=== PATIENT | female | born 1965 | race Caucasian/White ===

== ENCOUNTER 2020-05-11 11:07 | Outpatient (CLI) | payer MEDICARE, MEDICAID, SELFPAY ==
--- NOTE | ~2020-05-11 | CT_ITS ---
EXAMINATION:CT lung screening DATE: 05/11/2020 11:40 INDICATION: Personal history of tobacco dependence. Current smoker with 60 pack year history. TECHNIQUE: Computed tomography (CT) of the chest was performed without intravenous contrast. Automate d exposure control and iterative reconstruction technique were employed. The dose-length product (DLP ) was 563.58 mGy-cm. COMPARISON: Chest CT 11/22/2018 FINDINGS: There is mild atelectasis bilaterally. There is a 3 mm nodule at right lung apex without ch pastor. There is mild bronchiectasis in left lower lobe and lingula. No pleural effusion. The heart siz e is normal. There are coronary artery calcifications. No pericardial effusion. The central pulmonary arteries are enlarged, consistent with pulmonary arterial hypertension. There are no pathologically enlarged lymph nodes. There is thoracic dextroscoliosis and severe spondylosis. IMPRESSION: 1. Lung-RADS category 2: Benign appearance or behavior. Continue annual screening with noncontrast lo w-dose chest CT in 12 months. Reviewed, dictated and finalized at location B. IMPRESSION: 1. Lung-RADS category 2: Benign appearance or behavior. Continue annual screeni ng with noncontrast low-dose chest CT in 12 months.
== END 2020-05-11 11:08 | disposition home or self-care (01) ==
PROVIDERS: PCP Emergency Medicine; Visit Provider Emergency Medicine
DX: Z12.2 Encounter for screening for malignant neoplasm of respiratory organs (principal); Z87.891 Personal history of nicotine dependence
CPT/HCPCS: G0297

== ENCOUNTER 2021-01-14 08:38 | Outpatient (CLI) | payer MEDICARE, MEDICAID, SELFPAY ==
--- NOTE | ~2021-01-14 | MM_ITS ---
EXAMINATION: MM screening allison BI w jaiden HISTORY: Screening mammogram, family history of breast cancer in her mother and sister. TECHNIQUE: Craniocaudal and mediolateral oblique 3-D tomosynthesis images were obtained and synthetic 2-D images were generated. CAD analysis was submitted and interpreted. COMPARISON: 10/21/2019, 09/29/2018, 07/20/2017 BREAST PARENCHYMAL COMPOSITION: The breasts are almost entirely fatty. FINDINGS: There is no evidence of suspicious mass, calcification, or architectural distortion to sugg est malignancy in either breast. There has been no suspicious interval change. IMPRESSION: 1. No mammographic evidence of malignancy. 2. Recommend routine screening mammography in one year. BI-RADS Category 1: Negative Reviewed, dictated and finalized at location A.
== END 2021-01-14 08:39 | disposition home or self-care (01) ==
PROVIDERS: PCP Emergency Medicine; Visit Provider Emergency Medicine
DX: Z12.31 Encounter for screening mammogram for malignant neoplasm of breast (principal)
CPT/HCPCS: 77063; 77067

== ENCOUNTER 2021-06-05 00:25 | Day surgery (SDC) | payer MEDICARE, MEDICAID, SELFPAY ==
[2021-05-28 15:38] VITALS: BMI 52.4
[2021-06-05 10:13] VITALS: BP 136/78; PULSE 92; RESP 24; TEMP 36.4; O2SAT 96; BMI 50.7
[2021-06-05] MEDS: LACTATED RINGERS 1,000 ML 150 ML IV CONT (10:26)
--- NOTE | 2021-06-05 10:34 | WPDANESEPPF ---
Anes - Initial Pre Proc Eval Procedure: Operation Date: 06/05/21 10:30 Proposed Procedures p Screening Colonoscopy - Iglesia Dominguez MD Date/Time: 06/05/21 10:34 Surgeon: Iglesia Dominguez MD Pre Op Diagnosis: hx of colon polyps z86.10 Patient Data Age: 55 Gender: F Height: 1.68 m Weight: 142.6 kg Last Vital Signs Temp 36.4 C 06/05/21 10:13 Pulse 92 06/05/21 10:13 Resp 24 H 06/05/21 10:13 BP 136/78 06/05/21 10:13 Pulse Ox 96 06/05/21 10:13 Allergies Allergy/AdvReac Type Severity Reaction Status Date / Time No Known Allergies Allergy Verified 05/28/21 15:39 Home Medications Medication Instructions Recorded Confirmed Type Calcium 600 + D(3) 1 tab-cap PO BID 05/28/21 05/28/21 History alprazolam 0.5 mg PO BID PRN 05/28/21 05/28/21 History aspirin 81 mg PO DAILY 05/28/21 05/28/21 History cetirizine 10 mg PO DAILY 05/28/21 05/28/21 History citalopram 10 mg PO HS 05/28/21 05/28/21 History denosumab [Prolia] 60 mg SUBCUT [id number] 05/28/21 05/28/21 History etanercept [Enbrel SureClick] 50 mg SUBCUT WEEKLY 05/28/21 05/28/21 History fluticasone propionate 2 spray INTRANASAL DAILY 05/28/21 05/28/21 History hydrocodone-acetaminophen 1 tablet PO Q6H PRN 05/28/21 05/28/21 History hydroxychloroquine 200 mg PO BID 05/28/21 05/28/21 History [id number]-gdcpwhgo-mkjryp 1 tablet PO DAILY 05/28/21 05/28/21 History [Centrum Silver] omega-3 fatty acids-vitamin E 1 cap PO DAILY 05/28/21 05/28/21 History [Fish Oil] oxybutynin chloride 5 mg PO BID 05/28/21 05/28/21 History valsartan 320 mg PO DAILY 05/28/21 05/28/21 History Patient hx anesthesia problems: none Family hx anesthesia problems: none PMFSH Past Medical History Medical History (Updated 06/05/21 @ 10:34 by Teo Ortiz MD) HTN (hypertension) Morbid obesity CHRIS (obstructive sleep apnea) Family History Family History Father Family history of chronic obstructive pulmonary disease Family history of malignant neoplasm of bone Family history of emphysema Sibling Family history of malignant neoplasm of breast in first degree relative Acute myocardial infarction Other Diabetes mellitus Family history of arthritis Family history of cardiovascular disease Family history of heart disease in male family member before age 55 Family history of malignant neoplasm Hypertension Social History Social History Smoking packs per day: 1.5 Smoking cigarettes per day: 30.0 Years smoked: 40 Smoking pack-years: 60.00 Smoking status: Current every day smoker Tobacco type: cigarettes Smoking end date: 09/28/14 Alcohol intake: former Substance use: former Substance use type: former substance user, crack/cocaine, amphetamines and IV drugs Other substance usage details: EDIBLES NOW OCC. MARIJUANA Living arrangements: with family Spiritual care concerns: No Anes - Eval Final PreProcedure Day of Procedure 06/05/21 10:34 Patient weight: morbidly obese Heart: regular rate and rhythm Lungs: clear to auscultation Airway: Mallampati scale class II Neurological: alert and oriented Last oral intake: >/= 8 hours ASA classification: IV Emergent: no Anesthetic plan: proceed Anesthesia type and monitoring: general GIVS and standard monitoring Informed Consent: The patient's anesthetic plan and its attendant risks and benefits were discussed with the patient/family/POA. Questions were solicited and answers provided to the satisfaction of the patient/family/POA.
--- NOTE | 2021-06-05 10:47 | PM.HPGS ---
History of Present Illness History of Present Illness Consent: Risks, benefits, and alternatives have been discussed and questions answered. Patient agrees to proceed with procedure. Chief complaint: hx of colon polyps z86.10 Narrative: Denisse Xiao is a 55 year old female with colon polyp 5 years ago Review of Systems Constitutional: Constitutional: Denies headache(s) and Denies weakness Eyes: Eyes: Denies blurry vision ENT: Reports Normal hearing present, Denies headache(s) and Denies neck pain Cardiovascular: Cardiovascular: Denies chest pain and Denies dyspnea Respiratory: Respiratory: Denies dyspnea Gastrointestinal: Gastrointestinal: Reports no additional gastrointestinal complaints Genitourinary: Genitourinary: Denies dysuria Musculoskeletal: Musculoskeletal: Denies neck pain Integumentary/Breasts: Skin/Breast: Denies dry skin Neurologic: Reports Normal hearing present, Denies headache(s) and Denies weakness Psychiatric: Psychiatric: Denies anxiety Endocrine: Endocrine: Denies change in body appearance Hematologic/Lymphatic: Hematologic/Lymphatic: Denies easy bleeding Allergic/Immunologic: Allergic/Immunologic: Denies urticaria PMF Past Medical History Medical History (Updated 06/05/21 @ 10:48 by Iglesia Dominguez MD) Colon cancer screening HTN (hypertension) Morbid obesity CHRIS (obstructive sleep apnea) Family History Family History Father Family history of chronic obstructive pulmonary disease Family history of malignant neoplasm of bone Family history of emphysema Sibling Family history of malignant neoplasm of breast in first degree relative Acute myocardial infarction Other Diabetes mellitus Family history of arthritis Family history of cardiovascular disease Family history of heart disease in male family member before age 55 Family history of malignant neoplasm Hypertension Social History Social History Smoking packs per day: 1.5 Smoking cigarettes per day: 30.0 Years smoked: 40 Smoking pack-years: 60.00 Smoking status: Current every day smoker Tobacco type: cigarettes Smoking end date: 09/28/14 Alcohol intake: former Substance use: former Substance use type: former substance user, crack/cocaine, amphetamines and IV drugs Other substance usage details: EDIBLES NOW OCC. MARIJUANA Living arrangements: with family Spiritual care concerns: No Meds Home Medications and Allergies Home Medications Medication Instructions Recorded Confirmed Type Calcium 600 + D(3) 1 tab-cap PO BID 05/28/21 05/28/21 History alprazolam 0.5 mg PO BID PRN 05/28/21 05/28/21 History aspirin 81 mg PO DAILY 05/28/21 05/28/21 History cetirizine 10 mg PO DAILY 05/28/21 05/28/21 History citalopram 10 mg PO HS 05/28/21 05/28/21 History denosumab [Prolia] 60 mg SUBCUT [id number] 05/28/21 05/28/21 History etanercept [Enbrel SureClick] 50 mg SUBCUT WEEKLY 05/28/21 05/28/21 History fluticasone propionate 2 spray INTRANASAL DAILY 05/28/21 05/28/21 History hydrocodone-acetaminophen 1 tablet PO Q6H PRN 05/28/21 05/28/21 History hydroxychloroquine 200 mg PO BID 05/28/21 05/28/21 History [id number]-pbzlutst-xdtqdq 1 tablet PO DAILY 05/28/21 05/28/21 History [Centrum Silver] omega-3 fatty acids-vitamin E 1 cap PO DAILY 05/28/21 05/28/21 History [Fish Oil] oxybutynin chloride 5 mg PO BID 05/28/21 05/28/21 History valsartan 320 mg PO DAILY 05/28/21 05/28/21 History Allergies Allergy/AdvReac Type Severity Reaction Status Date / Time No Known Allergies Allergy Verified 05/28/21 15:39 Vital Signs Vital Signs - 24 hr 06/05/21 10:13 Temperature 97.6 F Pulse Rate 92 Respiratory Rate 24 H Blood Pressure 136/78 Pulse Oximetry 96 Exam Const: General: comfortable and no acute distress Nutritional Appearance: obese HENMT: General nose exa
[2021-06-05 11:08] VITALS: BP 120/74; PULSE 68; RESP 24; O2SAT 100
[2021-06-05 11:18] VITALS: BP 127/75; PULSE 65; RESP 19; O2SAT 100
[2021-06-05 11:28] VITALS: BP 130/76; PULSE 75; RESP 19; O2SAT 100
== END 2021-06-05 11:40 | disposition home or self-care (01) ==
PROVIDERS: PCP Emergency Medicine; Visit Provider Internal Medicine Gastroenterology
PROC: 0DJD8ZZ Inspection of Lower Intestinal Tract, Via Natural or Artificial Opening Endoscopic (ICD-10-PCS; CPT 45378; principal; 2021-06-05 10:30)
DX: Z12.11 Encounter for screening for malignant neoplasm of colon (principal); D12.4 Benign neoplasm of descending colon; K64.8 Other hemorrhoids; I10 Essential (primary) hypertension; G47.33 Obstructive sleep apnea (adult) (pediatric); E66.01 Morbid (severe) obesity due to excess calories; Z68.43 Body mass index [BMI] 50.0-59.9, adult; Z79.82 Long term (current) use of aspirin; F17.210 Nicotine dependence, cigarettes, uncomplicated; F12.90 Cannabis use, unspecified, uncomplicated
CPT/HCPCS: 45385; 88305; J2704; J7120

== ENCOUNTER 2021-07-05 02:01 | Day surgery (SDC) | payer MEDICARE, MEDICAID, SELFPAY ==
[2021-06-20 09:01] VITALS: BMI 52.5
[2021-07-05 08:48] VITALS: BP 181/76; PULSE 73; RESP 20; TEMP 36.8; O2SAT 98
[2021-07-05] MEDS: LACTATED RINGERS 1,000 ML 150 ML IV CONT (09:00)
--- NOTE | 2021-07-05 09:10 | WPDANESEPPF ---
Anes - Initial Pre Proc Eval Procedure: Operation Date: 07/05/21 09:30 Proposed Procedures p Esophagogastroduodenoscopy - Iglesia Dominguez MD Date/Time: 07/05/21 09:10 Surgeon: Iglesia Dominguez MD Pre Op Diagnosis: henson's esophagus Patient Data Age: 55 Gender: F Height: 1.68 m Weight: 143.7 kg Last Vital Signs Temp 98.3 F 07/05/21 08:48 Pulse 73 07/05/21 08:48 Resp 20 07/05/21 08:48 BP 181/76 H 07/05/21 08:48 Pulse Ox 98 07/05/21 08:48 Allergies Allergy/AdvReac Type Severity Reaction Status Date / Time No Known Allergies Allergy Verified 07/05/21 08:46 Home Medications Medication Instructions Recorded Confirmed Type Calcium 600 + D(3) 1 tab-cap PO BID 05/28/21 06/20/21 History alprazolam 0.5 mg PO BID PRN 05/28/21 06/20/21 History aspirin 81 mg PO DAILY 05/28/21 06/20/21 History cetirizine 10 mg PO DAILY 05/28/21 06/20/21 History citalopram 10 mg PO HS 05/28/21 06/20/21 History denosumab [Prolia] 60 mg SUBCUT [id number] 05/28/21 06/20/21 History etanercept [Enbrel SureClick] 50 mg SUBCUT WEEKLY 05/28/21 06/20/21 History fluticasone propionate 2 spray INTRANASAL DAILY 05/28/21 06/20/21 History hydrocodone-acetaminophen 1 tablet PO Q6H PRN 05/28/21 06/20/21 History hydroxychloroquine 200 mg PO BID 05/28/21 06/20/21 History iziaqsrgtddi-emjtiwcd-qljfep 1 tablet PO DAILY 05/28/21 06/20/21 History [Centrum Silver] omega-3 fatty acids-vitamin E 1 cap PO DAILY 05/28/21 06/20/21 History [Fish Oil] oxybutynin chloride 5 mg PO BID 05/28/21 06/20/21 History valsartan 320 mg PO DAILY 05/28/21 06/20/21 History Patient hx anesthesia problems: none Family hx anesthesia problems: none Results Review: All pre-operative results and documents have been reviewed as part of the pre-operative evaluation. [facility] Past Medical History Medical History (Updated 06/05/21 @ 10:48 by Iglesia Dominguez MD) Colon cancer screening HTN (hypertension) Morbid obesity CHRIS (obstructive sleep apnea) Family History Family History Father Family history of chronic obstructive pulmonary disease Family history of malignant neoplasm of bone Family history of emphysema Sibling Family history of malignant neoplasm of breast in first degree relative Acute myocardial infarction Other Diabetes mellitus Family history of arthritis Family history of cardiovascular disease Family history of heart disease in male family member before age 55 Family history of malignant neoplasm Hypertension Social History Social History Smoking packs per day: 1.5 Smoking cigarettes per day: 30.0 Years smoked: 40 Smoking pack-years: 60.00 Smoking status: Current every day smoker Tobacco type: cigarettes Smoking end date: 09/28/14 Alcohol intake: former Substance use: former Substance use type: former substance user, crack/cocaine, amphetamines and IV drugs Other substance usage details: EDIBLES NOW OCC. MARIJUANA Living arrangements: with family Spiritual care concerns: No Anes - Eval Final PreProcedure Day of Procedure 07/05/21 09:10 Patient weight: super morbidly obese Heart: regular rate and rhythm Lungs: clear to auscultation Airway: Mallampati scale class III Neurological: alert and oriented Last oral intake: >/= 8 hours ASA classification: IV Emergent: no Anesthetic plan: proceed Anesthesia type and monitoring: general GIVS and standard monitoring Results Review: All pre-operative results and documents have been reviewed as part of the pre-operative evaluation. Informed Consent: The patient's anesthetic plan and its attendant risks and benefits were discussed with the patient/family/POA. Questions were solicited and answers provided to the satisfaction of the patient/family/POA.
--- NOTE | 2021-07-05 09:16 | PM.HPGS ---
History of Present Illness History of Present Illness Consent: Risks, benefits, and alternatives have been discussed and questions answered. Patient agrees to proceed with procedure. Chief complaint: henson's esophagus Narrative: Denisse Xiao is a 55 year old female with Henson's 2 years ago, denies gerd symptoms Review of Systems Constitutional: Constitutional: Denies headache(s) and Denies weakness Eyes: Eyes: Denies blurry vision ENT: Reports Normal hearing present, Denies headache(s) and Denies neck pain Cardiovascular: Cardiovascular: Denies chest pain and Denies dyspnea Respiratory: Respiratory: Denies dyspnea Gastrointestinal: Gastrointestinal: Reports no additional gastrointestinal complaints Genitourinary: Genitourinary: Denies dysuria Musculoskeletal: Musculoskeletal: Denies neck pain Integumentary/Breasts: Skin/Breast: Denies dry skin Neurologic: Reports Normal hearing present, Denies headache(s) and Denies weakness Psychiatric: Psychiatric: Denies anxiety Endocrine: Endocrine: Denies change in body appearance Hematologic/Lymphatic: Hematologic/Lymphatic: Denies easy bleeding Allergic/Immunologic: Allergic/Immunologic: Denies urticaria PMFSH Past Medical History Medical History (Updated 07/05/21 @ 09:17 by Iglesia Dominguez MD) Henson esophagus Colon cancer screening HTN (hypertension) Morbid obesity CHRIS (obstructive sleep apnea) Family History Family History Father Family history of chronic obstructive pulmonary disease Family history of malignant neoplasm of bone Family history of emphysema Sibling Family history of malignant neoplasm of breast in first degree relative Acute myocardial infarction Other Diabetes mellitus Family history of arthritis Family history of cardiovascular disease Family history of heart disease in male family member before age 55 Family history of malignant neoplasm Hypertension Social History Social History Smoking packs per day: 1.5 Smoking cigarettes per day: 30.0 Years smoked: 40 Smoking pack-years: 60.00 Smoking status: Current every day smoker Tobacco type: cigarettes Smoking end date: 09/28/14 Alcohol intake: former Substance use: former Substance use type: former substance user, crack/cocaine, amphetamines and IV drugs Other substance usage details: EDIBLES NOW OCC. MARIJUANA Living arrangements: with family Spiritual care concerns: No Meds Home Medications and Allergies Home Medications Medication Instructions Recorded Confirmed Type Calcium 600 + D(3) 1 tab-cap PO BID 05/28/21 06/20/21 History alprazolam 0.5 mg PO BID PRN 05/28/21 06/20/21 History aspirin 81 mg PO DAILY 05/28/21 06/20/21 History cetirizine 10 mg PO DAILY 05/28/21 06/20/21 History citalopram 10 mg PO HS 05/28/21 06/20/21 History denosumab [Prolia] 60 mg SUBCUT [id number] 05/28/21 06/20/21 History etanercept [Enbrel SureClick] 50 mg SUBCUT WEEKLY 05/28/21 06/20/21 History fluticasone propionate 2 spray INTRANASAL DAILY 05/28/21 06/20/21 History hydrocodone-acetaminophen 1 tablet PO Q6H PRN 05/28/21 06/20/21 History hydroxychloroquine 200 mg PO BID 05/28/21 06/20/21 History vbmwaqkcdzfe-mpztyhra-[id number] 1 tablet PO DAILY 05/28/21 06/20/21 History [Centrum Silver] omega-3 fatty acids-vitamin E 1 cap PO DAILY 05/28/21 06/20/21 History [Fish Oil] oxybutynin chloride 5 mg PO BID 05/28/21 06/20/21 History valsartan 320 mg PO DAILY 05/28/21 06/20/21 History Allergies Allergy/AdvReac Type Severity Reaction Status Date / Time No Known Allergies Allergy Verified 07/05/21 08:46 Vital Signs Vital Signs - 24 hr 07/05/21 08:48 Temperature 98.3 F Pulse Rate 73 Respiratory Rate 20 Blood Pressure 181/76 H Pulse Oximetry 98 Exam Const: General: comfortable and no acute distress HENMT: General nose e
[2021-07-05] MEDS: BENZOCAINE (*SP) 60 ML SPRAY CAN (HURRICAINE) 1 SPRAY MUCOUS MEM (09:24)
[2021-07-05 09:35] VITALS: BP 154/102; PULSE 74; RESP 14; O2SAT 99
[2021-07-05 09:45] VITALS: BP 152/81; PULSE 73; RESP 17; O2SAT 99
[2021-07-05 09:55] VITALS: BP 139/75; PULSE 76; RESP 18; O2SAT 97
== END 2021-07-05 09:58 | disposition home or self-care (01) ==
PROVIDERS: PCP Emergency Medicine; Visit Provider Internal Medicine Gastroenterology
PROC: 0DJ08ZZ Inspection of Upper Intestinal Tract, Via Natural or Artificial Opening Endoscopic (ICD-10-PCS; CPT 43235; principal; 2021-07-05 09:30)
DX: K22.70 Barrett's esophagus without dysplasia (principal); K29.70 Gastritis, unspecified, without bleeding; K29.50 Unspecified chronic gastritis without bleeding; I10 Essential (primary) hypertension; G47.33 Obstructive sleep apnea (adult) (pediatric); E66.01 Morbid (severe) obesity due to excess calories; Z68.43 Body mass index [BMI] 50.0-59.9, adult; F17.210 Nicotine dependence, cigarettes, uncomplicated; Z79.82 Long term (current) use of aspirin
CPT/HCPCS: 43239; 88305; 88313; J2704; J7120

== ENCOUNTER 2022-06-04 08:42 | Emergency (ER) | payer MEDICARE, MEDICAID, SELFPAY ==
--- NOTE | 2022-06-04 08:44 | ED.EYEPROB ---
HPI - Eye Problem General Chief complaint: Eye Problems Stated complaint: EYE REDNESS Time Seen by Provider: 06/04/22 08:44 Source: patient and RN notes reviewed History of Present Illness HPI Narrative: Patient is a 56-year-old female who presents the urgent care with complaints of redness and drainage to the left eye. Patient states its been ongoing for approximately 1 month and she has been using xavy-bvv-qyrzwkw eyedrops. Patient states that her eye doctor told her it could be related to COVID and would not see her in the office . Patient states that she does go for a follow-up with her eye doctor on Thursday but has been told that she has pinkeye. Patient denies of any fever or COVID-related symptoms. Denies any trauma or injury to the eye. No other acute complaints. No acute distress noted. Patient aware of the plan of care. Some parts of this dictation were generated by voice recognition software and may contain typographical and/or grammatical inaccuracies. Related Data Home Medications Medication Instructions Recorded Confirmed Calcium 600 + D(3) 1 tab-cap PO BID 05/28/21 06/20/21 alprazolam 0.5 mg tablet 0.5 mg PO BID PRN Anxiety 05/28/21 06/20/21 aspirin 81 mg tablet,delayed 81 mg PO DAILY 05/28/21 06/20/21 release cetirizine 10 mg tablet 10 mg PO DAILY 05/28/21 06/20/21 citalopram 10 mg tablet 10 mg PO HS 05/28/21 06/20/21 denosumab 60 mg/mL subcutaneous 60 mg subcut [id number] 05/28/21 06/20/21 syringe (Prolia) etanercept 50 mg/mL (1 mL) 50 mg subcut WEEKLY 05/28/21 06/20/21 subcutaneous pen injector (Enbrel SureClick) fluticasone propionate 50 2 spray intranasal DAILY 05/28/21 06/20/21 mcg/actuation nasal spray,suspension hydrocodone 10 mg-acetaminophen 1 tablet PO Q6H PRN Pain 05/28/21 06/20/21 325 mg tablet hydroxychloroquine 200 mg tablet 200 mg PO BID 05/28/21 06/20/21 vrooyogrsodf-vjnxiicr-kceyxc tablet 1 tablet PO DAILY 05/28/21 06/20/21 omega-3 fatty acids-vitamin E 1 cap PO DAILY 05/28/21 06/20/21 1,000 mg capsule oxybutynin chloride 5 mg tablet 5 mg PO BID 05/28/21 06/20/21 valsartan 320 mg tablet 320 mg PO DAILY 05/28/21 06/20/21 Allergies Allergy/AdvReac Type Severity Reaction Status Date / Time ibuprofen Allergy Mild NAUSEA AND Verified 12/05/21 16:31 VOMITING Review of Systems Review of Systems: CONSTITUTIONAL: Denies fever, chills, or sweats. EYES: Reports of redness, drainage and itchiness to the left eye ENT: Denies rhinorrhea, congestion, sore throat, or otalgia. CARDIOVASCULAR: Denies chest pain, palpitations, or edema. RESPIRATORY: Denies cough or dyspnea. GASTROINTESTINAL: Denies abdominal pain, nausea, vomiting, or diarrhea. GENITOURINARY: Denies dysuria or hematuria. SKIN: Denies rash or itching. MUSCULOSKELETAL: Denies back pain, joint pain, or myalgia. NEUROLOGIC: Denies headache, numbness, or weakness. All other systems reviewed are negative, except as documented in HPI. [facility] Past Medical History Medical History (Updated 06/04/22 @ 08:55 by REMINGTON Narvaez) Lauren esophagus Colon cancer screening HTN (hypertension) Morbid obesity CHRIS (obstructive sleep apnea) Family History Family History Father Family history of chronic obstructive pulmonary disease Family history of malignant neoplasm of bone Family history of emphysema Sibling Family history of malignant neoplasm of breast in first degree relative Acute myocardial infarction Other Diabetes mellitus Family history of arthritis Family history of cardiovascular disease Family history of heart disease in male family member before age 55 Family history of malignant neoplasm Hypertension Social History Social History (System 12/05/21 @ 16:31 by Ashley Shoemaker) Smoking packs per day: 1.5 Smoking cigarettes per day: 30.0 Years smoked: 40 Smoking pack-years: 60.00 Smoking status: Current every day smoker
[2022-06-04 08:50] VITALS: BP 129/86; PULSE 96; RESP 22; TEMP 37.1; O2SAT 95
== END 2022-06-04 09:00 | disposition home or self-care (01) ==
PROVIDERS: Emergency Provider Nurse Practitioner Family; PCP Emergency Medicine
DX: H10.9 Unspecified conjunctivitis (principal); K22.70 Barrett's esophagus without dysplasia; I10 Essential (primary) hypertension; G47.33 Obstructive sleep apnea (adult) (pediatric); E66.01 Morbid (severe) obesity due to excess calories; Z79.82 Long term (current) use of aspirin
CPT/HCPCS: 99213; G0463

== ENCOUNTER 2022-07-31 08:07 | Outpatient (CLI) | payer MEDICARE, MEDICAID, SELFPAY ==
--- NOTE | ~2022-07-31 | MM_ITS ---
EXAMINATION: MM screening allison BI w jaiden HISTORY: Screening TECHNIQUE: Craniocaudal and mediolateral oblique 3-D tomosynthesis images were obtained and synthetic 2-D images were generated. CAD analysis was submitted and interpreted. COMPARISON: Comparison to multiple prior studies sequentially, with oldest reviewed study dated 06/28. BREAST PARENCHYMAL COMPOSITION: The breasts are almost entirely fatty. FINDINGS: There is no evidence of suspicious mass, calcification, or architectural distortion to sugg est malignancy in either breast. There has been no suspicious interval change. IMPRESSION: 1. No mammographic evidence of malignancy. 2. Recommend routine screening mammography in one year. BI-RADS Category 1: Negative Reviewed, dictated and finalized at location A.
== END 2022-07-31 08:08 | disposition home or self-care (01) ==
LOC: ANHIMG 08:08
PROVIDERS: PCP Emergency Medicine; Visit Provider Emergency Medicine
DX: Z12.31 Encounter for screening mammogram for malignant neoplasm of breast (principal)
CPT/HCPCS: 77063; 77067